=== PATIENT | female | born 1975 | race Caucasian/White ===

== ENCOUNTER 2023-02-02 22:57 | Inpatient (IN) | payer BC ==
[~2023-02-02] VITALS: Ht 152.4 cm; Wt 58.4 kg
[2023-02-03] MEDS ORDERED: NITROGLYCERIN 0.4 MG SL TABLETS BTL 25'S SL PRN (01:45)
[2023-02-03] MEDS ORDERED: ACETAMINOPHEN 500 MG TABLET PO PRN (01:45)
[2023-02-03] MEDS ORDERED: meTOprolol TARTRATE (IR) 50 MG TABLET PO SCH (02:00)
[2023-02-03] MEDS ORDERED: NS IV 1000 ML 1,000 ML IV SCH ×2 (03:00→05:00)
[2023-02-03] MEDS: LORazepam 1 MG TABLET PO PRN ×2 (05:09→21:47)
[2023-02-03 07:43] LABS: POTASSIUM 4.1 MMOL/L (3.6-5.0)
[2023-02-03 07:48] LABS: CREATININE SERUM 0.64 MG/DL (0.60-1.30)
--- NOTE | 2023-02-03 07:49 | History & Physical-Hospitalist ---
History of Present Illness HPI/Chief Complaint Patient is a 47-year-old female with a past medical history of alcohol abuse who presented to the outside emergency department due to chest pain. Her committed suicide yesterday and symptoms started shortly after this. Troponin was found ot be elevated at 2.9 there and she was transferred for cardiology evaluation. This morning she reports still having some chest tightness and pressure that radiates to her back. When asked about other symptoms such as shortness of breath or nausea she has somewhat nondescript given what she is going through. Repeat troponin is pending at this time but have spoken to eICU and cardiology regarding patient. Source: patient Date Seen 02/03/23 Time Seen by a Provider: 07:43 Attending Physician PCP Admitting Physician: Edgar Jimenes MD Attending Physician: Edgar Jimenes MD Referring Physician Date of Admission Feb 03, 2023 at 00:29 Home Medications & Allergies Home Medications Reviewed patient Home Medication Reconciliation performed by pharmacy medication reconciliations microbiology lab technician and/or nursing. Patients Allergies have been reviewed. Allergies Allergies Coded Allergies No Known Drug Allergies (Utfquhxlev99/4/23) Past Mlqrulf-Rzmshq-Tsrdfk Hx Patient Social History Tobacco Use?: Yes Tobacco type used: Cigarettes Smoking Status: Current Everyday Smoker Use of E-Cig and/or Vaping dev: Yes E-Cig or Vaping type used: Nicotine Use of E-Cig and/or Vaping Carter: Light User Substance use?: No Alcohol Use?: Yes Alcohol type: Beer Alcohol Frequency: Daily Additional Alcohol Comments: 2-4 BEERS PER NIGHT Pt feels they are or have been: No Current Status status: No status: No Advance Directives: No Communicates: Verbally Primary Language: Israeli Preferred Spoken Language: Israeli Is interpretation needed?: No Sensory deficits: Vision impairment Implanted or Applied Medical D: None Review of Systems Constitutional: see HPI Physical Exam Physical Exam Vital Signs Vital Signs - First Documented 02/03/23 02/03/23 00:30 07:39 Temp 36.3 O2 Flow Rate 2.00 Capillary Refill : Height, Weight, BMI Height: '" Weight: lbs. oz. kg; 25.40 BMI Method: General Appearance: No Apparent Distress, WD/WN Respiratory: Lungs Clear, No Respiratory Distress Cardiovascular: Regular Rate, Rhythm, No Murmur Gastrointestinal: Normal Bowel Sounds, Soft Neurologic/Psychiatric: Alert, Oriented x3, Depressed Affect Results Results/Procedures Labs Laboratory Tests 02/03/23 07:14 Patient resulted labs reviewed. Assessment/Plan Admission Diagnosis NSTEMI Admission Status: Inpatient Order (span 2 midnights) Reason for Inpatient Admission: see below Assessment and Plan NSTEMI Alcohol abuse Trop 2.9 at OSH Repeat pending here Cardiology consulted, appreciate recs Telemetry NPO Echo ordered Received Lovenox, ASA, Plavix at OSH Updated Dr Chambers of admission special services supervisor consulted due to recent suicide of Diagnosis/Problems Diagnosis/Problems (1) NSTEMI (non-ST elevated myocardial infarction) ROXY RAINES MD Feb 03, 2023 07:49
--- NOTE | 2023-02-03 08:38 | Consultation-Cardiology ---
HPI-Cardiology Cardiology Consultation: Date of Consultation 02/03/23 Time Seen by a Provider: 08:10 Date of Admission 02-03-23 Attending Physician Admitting Physician Admitting Physician: Edgar Jimenes MD Attending Physician: Edgar Jimenes MD Consulting Physician Ric Zhong MD HPI: Chief Complaint: NSTEMI Ms. Alejandro is a 47 yr old female admitted to ICU 9 from [facility] with NSTEMI. She has had increased stress d/t the recent suicide of her spouse (yesterday). She reports increasing chest pressure mid-chest radiating across her chest. She reports she had been nauseated most of the day yesterday. She does report diaphoresis yesterday. She had taken a Xanax belonging to a friend. This did not improve her chest discomfort. She reports she is still having some chest pressure, mid-sternal this morning, but reports it is better than yesterday. She does smoke cigs approx 1 PPD. No LE swelling. Review of Systems-Cardiology Review of Systems Constitutional: No chills, No fever; tiredness Eyes: No vision change Ears/Nose/Throat: No recent hearing loss Respiratory: As described under HPI Cardiovascular: As described under HPI Gastrointestinal: As described under HPI Genitourinary: No dysuria, No hematuria Musculoskeletal: no symptoms reported Skin: No rash on exposed areas, No ulcerations on exposed areas Psychiatric/Neurological: anxiety, depression; No seizure, No focal weakness, No syncope Hematologic: No bleeding abnormalities HSW-Guagqd-Lpebkq Hx Patient Social History Smoking Status: Current Everyday Smoker Alcohol Use?: Yes Pt feels they are or have been: No Tobacco type used: Cigarettes Past Medical History PMH As described under Assessment. Family Medical History Family Medical History: Reports father had h/o CAD. Allergies and Home Medications Allergies Coded Allergies: No Known Drug Allergies (Unverified , 02/03/23) Patient Home Medication List Famotidine (Acid Narcotics Detective (FAMOTIDINE)) 20 Mg Tablet, 20 MG PO BID PRN for HEARTBURN, (Reported) Entered as Reported by: PREET CURTIS on 02/03/23 1056 Last Action: Reviewed Ibuprofen (Ibuprofen) 200 Mg Tablet, 400-600 MG PO Q8H PRN for PAIN-MILD (1-4), (Reported) Entered as Reported by: PREET CURTIS on 02/03/23 1056 Last Action: Reviewed Physical Exam-Cardiology Physical Exam Vital Signs/I&O 02/04/23 02/04/23 02/04/23 02/04/23 00:00 01:00 01:30 01:45 Temp 36.4 Pulse 75 100 68 62 Resp 20 18 18 B/P (MAP) 86/67 (73) 81/59 (66) 82/54 (63) Pulse Ox 96 94 94 O2 Delivery Room Air Room Air Room Air 02/04/23 02/04/23 02/04/23 04:00 07:00 07:54 Temp 37.0 Pulse 97 108 94 Resp 15 13 B/P (MAP) 98/75 (83) 117/80 (92) Pulse Ox 96 97 O2 Delivery Room Air Nasal Cannula 02/04/23 00:00 Intake Total 1190 ml Balance 1190 ml Capillary Refill : Constitutional: AAO x 3, well-developed, well-nourished HEENT: PERRL, hearing is well preserved, oral hygience is good Neck: No carotid bruit; carotid pulses are 2 + bilaterally Respiratory: No accessory muscle use, No respiratory distress; chest expansion is symmetric, chest is bilaterally symmetric, lungs clear to auscultation Cardiovascular: regular rate-rhythm; No JVD; S1 and S2 Gastrointestinal: No tender; soft; No guarding; audible bowel sounds Extremities: no lower extremity edema bilateral Neurologic/Psychiatric: oriented x 3, other (moves all extremities) Skin: No rash on exposed areas, No ulcerations on exposed areas Data Review Labs Laboratory Tests 02/04/23 05:27: White Blood Count 11.0, Red Blood Count 3.49L, Hemoglobin 11.5, Hematocrit 32L, Mean Corpuscular Volume 92, Mean Corpuscular Hemoglobin 33, Mean Corpuscular Hemoglobin Concent 36, Red Cell Distribution Width 12.7, Platelet Count 229, Mean Platelet Volume 9.4, Immature Granulocyte % (Auto) 0, Neutrophils (%) (Auto) 79H, Lymphocytes (%) (Auto) 13, Monocytes (%) (Auto) 6, Eosinophils (%) (Auto) 1, Basophils (%) (Auto) 1, Neutrophils # (Auto) 8.7H, Lymphocytes # (Auto) 1.4, Monocytes # (Auto) 0.7, Eosinophils # (Auto) 0.1, Basophils # (Auto) 0.1, Immature Granulocyte # (Auto) 0.0, Sodium Level 134L, Potassium Level 3.3L, Chloride Level 104, Carbon Dioxide Level 20L, Anion Gap 10, Blood Urea Nitrogen 5L, Creatinine 0.67, Estimat Glomerular Filtration Rate 107, BUN/Creatinine Ra vaibhav 7, Glucose Level 106H, Calcium Level 8.1L, Corrected Calcium 8.7, Phosphorus Level 2.4, Magnesium Level 1.8, Total Bilirubin 0.7, Aspartate Amino Transf (AST/SGOT) 26, Alanine Aminotransferase (ALT/SGPT) 18, Alkaline Phosphatase 62, Total Protein 5.7L, Albumin 3.2 Microbiology 02/03/23 MRSA Screen - Final, Complete MRSA not isolated A/P-Cardiology Assessment/Admission Diagnosis NSTEMI Tobacco use ETOH usage H/O cholecystectomy Recent loss of spouse d/t suicide (02-02-23) Discussion and Recomendations NSTEMI with ongoing chest discomfort - advise cardiac cath. Discussed procedure, risks, benefits and potential complications of cardiac cath with possible PTCA. She provides informed consent Echocardiogram today Continue DAPT and BB Further recs will be based on her hospital course We would like to thank medical services for this consult I have discussed plan of care with Dr. Hayward and Dr. Trevin ALEMAN,[facility] Feb 03, 2023 08:38
[2023-02-03] MEDS ORDERED: CLOPIDOGREL 75 MG TABLET PO SCH (09:00)
[2023-02-03] MEDS ORDERED: meTOprolol TARTRATE (IR) 25 MG TABLET PO SCH (09:00)
[2023-02-03 09:11] LABS: INR 1.1 (0.8-1.4); PROTHROMBIN TIME PATIENT 13.9 SEC (12.2-14.7)
[2023-02-03] MEDS ORDERED: HEParin (CATH LAB) 2,000 ML IV ONE (09:18)
[2023-02-03] MEDS ORDERED: LIDOCAINE 1% INJ 20 ML VIAL ONE (09:18)
[2023-02-03] MEDS: ASPIRIN enteric coated 81MG TABLET PO SCH (09:26)
[2023-02-03 09:41] LABS: HEMATOCRIT 35 % (35-52); HEMOGLOBIN 12.4 g/dL (11.5-16.0); MEAN CORPUSCULAR HEMOGLOBIN 33 pg (25-34); MEAN CORPUSCULAR HGB CONC 35 g/dL (32-36); MEAN CORPUSCULAR VOLUME 92 fL (80-99); MEAN PLATELET VOLUME 9.5 fL (9.0-12.2); PLATELET COUNT 257 10^3/uL (130-400); WHITE BLOOD COUNT 7.1 10^3/uL (4.3-11.0)
[2023-02-03] MEDS ORDERED: IBUP-2473 PO (10:56)
[2023-02-03] MEDS ORDERED: FAMO-356 PO (10:56)
--- NOTE | 2023-02-03 11:48 | Tele-ICU Progress Note ---
Subjective Date Seen by a Provider: Feb 03, 2023 Time Seen by a Provider: 11:47 Subjective/Events-last exam (Tele-ICU Physician , Progress Note ) Service provided via interactive audio and video telecommunications E-CARE s te to a patient admitted to ICU bed in [facility]. Patient is seen today due to persistent need of ICU care Available chart/ vitals / labs / Images reviewed Video assessment done using teleICU camera, rest of exam as per RN She is a 47-year-old female with no known past medical history presenting today to go the ICU from [facility] with a complaint of chest pressure and nausea since yesterday. The chest pressure is almost constant. She has a history of smoking 1 pack/day. She is given aspirin, Plavix and Lovenox at the [facility] and admitted here for cardiology follow-up. She is scheduled for a cardiac catheterization. Impression 1. Non-STEMI secondary to stress and smoking. 2. Tobacco abuse disorder Plan of treatment. 1. Cardiac catheterization and intervention per cardiology 2. Smoking cessation advised 3. LDL goal less than 70. Coordination of care with primary care physician and bedside consultants. I am remotely monitoring this patient from Tele icu station in [place]. I am unable to do the bedside exam, and history/physical and pertinent information is taken from other notes in the computer and bedside staff. Certain portions of this document may have been dictated utilizing voice recognition technology such as [employer]. Inherent to this technology, typographical and grammatical errors may exist. As much as I am diligent to id entify and correct to these mistakes, some errors may remain in the document. Critical care time devoted to this patient today is approximately is-15 minutes- Sepsis Event Evaluation Height, Weight, BMI Height: '" Weight: lbs. oz. kg; 25.40 BMI Method: Exam Exam Patient acknowledged, consented, and participated in this virtual visit which was conducted using real time audio/video Vital Signs Date Time Temp Pulse Resp B/P (MAP) Pulse Ox O2 Delivery O2 Flow Rate FiO2 02/03/23 08:00 98 Room Air 02/03/23 07:39 36.8 Nasal Cannula 2.00 02/03/23 07:00 113 02/03/23 06:00 104 22 94/73 (77) 89 Room Air 02/03/23 05:30 112 19 101/74 (83) 89 Room Air 02/03/23 05:00 112 20 102/71 (81) 89 Room Air 02/03/23 04:30 98 18 93/68 (76) 93 Room Air 02/03/23 04:00 36.4 02/03/23 04:00 110 19 93/71 (77) 93 Room Air 02/03/23 03:49 97 Room Air 02/03/23 03:30 96 18 81/58 (67) 91 Room Air 02/03/23 03:00 97 17 85/59 (67) 93 Room Air 02/03/23 02:30 115 16 87/62 (71) 94 Room Air 02/03/23 02:09 100 18 91/63 (73) 92 Room Air 02/03/23 02:00 99 19 78/55 (67) 93 Room Air 02/03/23 01:49 103 20 87/58 (65) 93 Room Air 02/03/23 01:45 103 21 86/59 (71) 92 Room Air 02/03/23 01:30 101 12 94/63 (79) 93 Room Air 02/03/23 01:15 106 18 94/67 (77) 95 Room Air 02/03/23 01:00 97 Room Air 02/03/23 01:00 100 16 91/66 (77) 94 Room Air 02/03/23 00:45 98 17 93/66 (75) 93 Room Air 02/03/23 00:33 101 02/03/23 00:33 99 22 103/71 (81) 94 Room Air 02/03/23 00:30 36.3 I & O 02/03/23 07:00 Intake Total 1150 ml Output Total 800 ml Balance 350 ml Height & Weight Height: '" Weight: lbs. oz. kg; 25.40 BMI Method: General Appearance: Anxious, Mild Distress Results Lab Laboratory Tests 02/03/23 07:14 Assessment/Plan Assessment/Plan as above Critical Care: Critically Ill Patient Time spent with patient (mins): 15 RICKY SHEPARD MD Feb 03, 2023 11:48
[2023-02-03] MEDS ORDERED: RT-Ipratropium/Albuterol NEB 3 ML VIAL INH PRN (12:45)
[2023-02-03] MEDS ORDERED: RT-Ipratropium/Albuterol NEB 3 ML VIAL INH NR (12:45)
--- NOTE | 2023-02-03 12:56 | Diagnostic Imaging Report ---
EXAMINATION: Chest 1 view HISTORY: Short of breath COMPARISON: None available. FINDINGS: There is severe edema. No pleural effusion or pneumothorax. Heart size is normal. IMPRESSION: 1. Severe edema. Dictated by: Dictated on workstation # [id number]
[2023-02-03] MEDS ORDERED: FUROSEMIDE INJECTION 40 MG/4 ML VIAL IVP NR (13:15)
--- NOTE | 2023-02-03 15:06 | Consultation-Cardiology ---
HPI-Cardiology Cardiology Consultation: Date of Consultation 02/03/23 Time Seen by a Provider: 12:15 Date of Admission Attending Physician Admitting Physician Admitting Physician: Edgar Jimenes MD Attending Physician: Edgar Jimenes MD Consulting Physician ANGELA ESCALANTE MD, MA, FACP, FACC, [facility], CCDS Physician requesting consult: Hospitalist Tash HPI: Chief Complaint: Reason for Card consult: NSTEMI Ms. Alejandro is a 47 yr old female admitted to ICU 9 from [facility] with NSTEMI. She has had increased stress d/t the recent suicide of her spouse (yesterday). She reports increasing chest pressure mid-chest radiating across her chest. She reports she had been nauseated most of the day yesterday. She does report diaphoresis yesterday. She had taken a Xanax belonging to a friend. This did not improve her chest discomfort. She reports she is still having some chest pressure, mid-sternal this morning, but reports it is better than yesterday. She does smoke cigs approx 1 PPD. No LE swelling. Review of Systems-Cardiology Review of Systems Constitutional: No chills, No fever; tiredness Eyes: No vision change Ears/Nose/Throat: No recent hearing loss Respiratory: As described under HPI Cardiovascular: As described under HPI Gastrointestinal: As described under HPI Genitourinary: No dysuria, No hematuria Musculoskeletal: no symptoms reported Skin: No rash on exposed areas, No ulcerations on exposed areas Psychiatric/Neurological: anxiety, depression; No seizure, No focal weakness, No syncope Hematologic: No bleeding abnormalities ADQ-Slmofn-Bpwkys Hx Patient Social History Smoking Status: Current Everyday Smoker Alcohol Use?: Yes Pt feels they are or have been: No Tobacco type used: Cigarettes Past Medical History PMH As described under Assessment. Family Medical History Family Medical History: Reports father had h/o CAD. Allergies and Home Medications Allergies Coded Allergies: No Known Drug Allergies (Unverified , 02/03/23) Patient Home Medication List Home Medication List Reviewed: Yes Famotidine (Acid Glove Sewer (FAMOTIDINE)) 20 Mg Tablet, 20 MG PO BID PRN for HEARTBURN, (Reported) Entered as Reported by: PREET CURTIS on 02/03/23 1056 Last Action: Reviewed Ibuprofen (Ibuprofen) 200 Mg Tablet, 400-600 MG PO Q8H PRN for PAIN-MILD (1-4), (Reported) Entered as Reported by: PREET CURTIS on 02/03/23 1056 Last Action: Reviewed Physical Exam-Cardiology Physical Exam Vital Signs/I&O 02/03/23 02/03/23 02/03/23 02/03/23 03:30 03:49 04:00 04:00 Temp 36.4 Pulse 96 110 Resp 18 19 B/P (MAP) 81/58 (67) 93/71 (77) Pulse Ox 91 97 93 O2 Delivery Room Air Room Air Room Air 02/03/23 02/03/23 02/03/23 02/03/23 04:30 05:00 05:30 06:00 Pulse 98 112 112 104 Resp 18 22 B/P (MAP) 93/68 (76) 102/71 (81) 101/74 (83) 94/73 (77) Pulse Ox 93 89 89 89 O2 Delivery Room Air Room Air Room Air Room Air 02/03/23 02/03/23 02/03/23 02/03/23 07:00 07:00 07:39 08:00 Temp 36.8 Pulse 113 112 Resp 23 B/P (MAP) 108/79 (89) Pulse Ox 95 98 O2 Delivery Room Air Nasal Cannula Room Air O2 Flow Rate 2.00 02/03/23 02/03/23 02/03/23 02/03/23 08:00 09:00 10:00 11:00 Pulse 113 112 104 105 Resp 22 30 B/P (MAP) 110/85 (93) 115/87 (96) 103/80 (88) 115/91 (99) Pulse Ox 95 95 96 95 O2 Delivery Room Air Room Air Room Air Room Air 02/03/23 02/03/23 02/03/23 02/03/23 12:00 12:25 13:00 14:03 Pulse 105 112 Resp 25 19 B/P (MAP) 105/78 (87) 115/87 (96) Pulse Ox 93 92 93 94 O2 Delivery Room Air Nasal Cannula Room Air Nasal Cannula O2 Flow Rate 3.00 2.00 Capillary Refill : Constitutional: AAO x 3, well-developed, well-nourished HEENT: PERRL, hearing is well preserved, oral hygience is good Neck: No carotid bruit; carotid pulses are 2 + bilaterally Respiratory: No accessory muscle use, No respiratory distress; chest expansion is symmetric, chest is bilaterally symmetric, lungs clear to auscultation Cardiovascular: regular rate-rhythm; No JVD; S1 and S2 Gastrointestinal: No tender; soft; No guarding; audible bowel sounds Extremities: no lower extremity edema bilateral Neurologic/Psychiatric: oriented x 3, other (moves all extremities) Skin: No rash on exposed areas, No ulcerations on exposed areas Data Review Labs Laboratory Tests 02/03/23 07:14: White Blood Count 7.1, Red Blood Count 3.82, Hemoglobin 12.4, Hematocrit 35, Mean Corpuscular Volume 92, Mean Corpuscular Hemoglobin 33, Mean Corpuscular Hemoglobin Concent 35, Red Cell Distribution Width 12.5, Platelet Count 257, Mean Platelet Volume 9.5, Sodium Level 135, Potassium Level 4.1, Chloride Level 107, Carbon Dioxide Level 19L, Anion Gap 9, Blood Urea Nitrogen 5L, Creatinine 0.64, Estimat Glomerular Filtration Rate 108, BUN/Creatinine Ratio 8, Glucose Level 95, Calcium Level 8.0L, Troponin I 2.119*H 02/03/23 07:15: Prothrombin Time 13.9, INR Comment 1.1, Activated Partial Thromboplast Time 40H A/P-Cardiology Assessment/Admission Diagnosis NSTEMI Tobacco use ETOH usage H/O cholecystectomy Recent loss of spouse d/t suicide (02-02-23) Discussion and Recomendations NSTEMI with ongoing chest discomfort - advise cardiac cath. Discussed procedure, risks, benefits and potential complications of cardiac cath with possible PTCA. She provides informed consent Echocardiogram today Continue DAPT and BB Further recs will be based on her hospital course ANGELA ESCALANTE MD FACP [facility] Feb 03, 2023 15:06
[2023-02-03] MEDS ORDERED: fentaNYL INJECTION 100 MCG/2 ML VIAL ONE (16:15)
[2023-02-03] MEDS ORDERED: MIDAZOLAM INJ 5 MG/5 ML VIAL ONE (16:15)
[2023-02-03] MEDS ORDERED: HEParin 1000 UNIT/ML (10ML VIAL) FOR BOLUS ONE (16:59)
[2023-02-03] MEDS ORDERED: ADENOSINE 90 MG/30 ML IV ONE (16:59)
--- NOTE | 2023-02-03 17:27 | Cardiac Procedure Note-CS/ASA ---
Pre-Procedure Note Pre-Op Procedure Note Date of Available H&P: Feb 03, 2023 Date H&P Reviewed: Feb 03, 2023 Time H&P Reviewed: 16:40 History & Physical: H&P Reviewed, No changes noted Moderate Sedation PreProcedure ASA Score 3 Airway Lungs Heart ASA score ASA 1: a normal healthy patient ASA 2: a patient with a mild systemic disease (mid diabetes, controlled hypertension, obesity ASA 3: a patient with a severe systemic disease that limits activity (angina, COPD, prior Myocardial infarction) ASA 4: a patient with an incapacitating disease that is a constant threat to life (CHF, renal failure) ASA 5: a moribund patient not expected to survive 24 hrs. (ruptured aneurysm) ASA 6: a declared brain- patient whose organs are being harvested. For emergent operations, add the letter E after the classification Mallampati Classification Grade 2 Sedation Plan Analgesia, Amnesia, Plan communicated to team members The patient is an appropriate candidate to undergo the planned procedure, sedation, and anesthesia. The patient immediately re-assessed prior to indication. ANGELA ESCALANTE MD FACP FAC CCDS Feb 03, 2023 17:27
--- NOTE | 2023-02-03 17:36 | Cardiac Cath Report ---
CARDIAC CATHETERIZATION DATE OF PROCEDURE: 02-03-23 INDICATION: Elevated troponin HISTORY: The patient is a 47 year old female with chest discomfort after committed suicide earlier that day. Troponin elevated PROCEDURES PERFORMED: 1. Cor angio; 2. LHC; 3. LV Angio PROCEDURE DESCRIPTION: After informed consent and in the fasting state, left heart catheterization was performed through the R femoral artery utilizing a 5 Lao system by percutaneous approach. JL4 for LCA; JR4 for RCA; pigtail for LHC and LV angio. HEMODYNAMICS: LVEDP 23 mmHg; no significant pressure gradient on pullback across the aortic valve CORONARY ANGIOGRAPHY: Left main coronary artery: Ok Left anterior descending coronary artery: 30-40% proximal LAD Left circumflex coronary artery: mild plaques Right coronary artery: Dominant. 30-40% mid vessel stenosis LV Angio Both RAMOS and SLOVAK projections obtained: kane-apical and inf wall hypokinesis FFR measurement Guide 6F JL4 Wire: Pressure X wire FFR Prox LAD: 0.95 IMPRESSION: 1. Mild CAD 2. Kane-apical and inf wall hypokinesis consistent with takotsubo. LVEF approx 45% 3. LVEDP 23 mmHg ANGELA ESCALANTE MD FACP [facility] Feb 03, 2023 17:36
[2023-02-03] MEDS ORDERED: ACETAMINOPHEN 325 MG TABLET PO PRN (17:45)
[2023-02-03] MEDS ORDERED: TEMAZEPAM 7.5 MG CAP (RESTORIL) PO PRN (17:45)
[2023-02-03] MEDS ORDERED: PATIENT MAY USE OWN MEDS, ALL PO SCH (17:45)
[2023-02-03] MEDS: NS IV 1000 ML 1,000 ML IV SCH ×2 (17:54→23:21)
[2023-02-04] MEDS: NS IV 1000 ML 1,000 ML IV SCH (05:15)
[2023-02-04 06:03] LABS: BASOPHILS # (AUTO) 0.1 10^3/uL (0.0-0.1); BASOPHILS % (AUTO) 1 % (0-10); EOSINOPHILS # (AUTO) 0.1 10^3/uL (0.0-0.3); EOSINOPHILS % (AUTO) 1 % (0-10); HEMATOCRIT 32 % (35-52); HEMOGLOBIN 11.5 g/dL (11.5-16.0); LYMPHOCYTES # (AUTO) 1.4 10^3/uL (1.0-4.0); LYMPHOCYTES % (AUTO) 13 % (12-44); MEAN CORPUSCULAR HEMOGLOBIN 33 pg (25-34); MEAN CORPUSCULAR HGB CONC 36 g/dL (32-36); MEAN CORPUSCULAR VOLUME 92 fL (80-99); MEAN PLATELET VOLUME 9.4 fL (9.0-12.2); MONOCYTES # (AUTO) 0.7 10^3/uL (0.0-1.0); MONOCYTES % (AUTO) 6 % (0-12); NEUTROPHILS # (AUTO) 8.7 10^3/uL (1.8-7.8); NEUTROPHILS % (AUTO) 79 % (42-75); PLATELET COUNT 229 10^3/uL (130-400)
[2023-02-04 06:13] LABS: ALBUMIN 3.2 GM/DL (3.2-4.5); POTASSIUM 3.3 MMOL/L (3.6-5.0)
[2023-02-04 06:14] LABS: CALCIUM 8.1 MG/DL (8.5-10.1)
[2023-02-04 06:16] LABS: TOTAL PROTEIN 5.7 GM/DL (6.4-8.2)
[2023-02-04 06:17] LABS: BILIRUBIN,TOTAL 0.7 MG/DL (0.1-1.0)
[2023-02-04 06:19] LABS: CREATININE SERUM 0.67 MG/DL (0.60-1.30); PHOSPHORUS 2.4 MG/DL (2.3-4.7)
[2023-02-04 06:22] LABS: MAGNESIUM 1.8 MG/DL (1.6-2.4)
--- NOTE | 2023-02-04 08:06 | Diagnostic Imaging Report ---
EXAMINATION: Chest 1 view HISTORY: Heart failure COMPARISON: 02/03/2023 FINDINGS: There is mild edema, improved from prior exam. No pneumothorax. No pleural effusion. Heart size is normal. IMPRESSION: 1. Improving mild edema. Dictated by: Dictated on workstation # [id number]
--- NOTE | 2023-02-04 08:49 | Progress Note - Cardiology ---
Cardiology SOAP Progress Note Subjective: Sitting up in bed No c/o CP, palpitations No c/o groin discomfort Objective: I&O/Vital Signs 02/04/23 02/04/23 02/04/23 02/04/23 00:00 01:00 01:30 01:45 Temp 36.4 Pulse 75 100 68 62 Resp 20 18 18 B/P (MAP) 86/67 (73) 81/59 (66) 82/54 (63) Pulse Ox 96 94 94 O2 Delivery Room Air Room Air Room Air 02/04/23 02/04/23 02/04/23 04:00 07:00 07:54 Temp 37.0 Pulse 97 108 94 Resp 15 13 B/P (MAP) 98/75 (83) 117/80 (92) Pulse Ox 96 97 O2 Delivery Room Air Nasal Cannula 02/04/23 00:00 Intake Total 1190 ml Balance 1190 ml Side: right Groin site without hematoma: Yes Condition: DP/PT pulses palpable, extremity w/d/p Bruising: mild bruising Constitutional: AAO x 3, well-developed, well-nourished Respiratory: No accessory muscle use, No respiratory distress; chest expansion is symmetric, chest is bilaterally symmetric, lungs clear to auscultation Cardiovascular: regular rate-rhythm; No JVD; S1 and S2 Gastrointestional: No tender; soft; No guarding; audible bowel sounds Extremities: no lower extremity edema bilateral Neurologic/Psychiatric: oriented x 3, other (moves all extremities) Skin: No rash on exposed areas, No ulcerations on exposed areas Results/Procedures: Labs Laboratory Tests 02/04/23 05:27: White Blood Count 11.0, Red Blood Count 3.49L, Hemoglobin 11.5, Hematocrit 32L, Mean Corpuscular Volume 92, Mean Corpuscular Hemoglobin 33, Mean Corpuscular Hemoglobin Concent 36, Red Cell Distribution Width 12.7, Platelet Count 229, Mean Platelet Volume 9.4, Immature Granulocyte % (Auto) 0, Neutrophils (%) (Auto) 79H, Lymphocytes (%) (Auto) 13, Monocytes (%) (Auto) 6, Eosinophils (%) (Auto) 1, Basophils (%) (Auto) 1, Neutrophils # (Auto) 8.7H, Lymphocytes # (Auto) 1.4, Monocytes # (Auto) 0.7, Eosinophils # (Auto) 0.1, Basophils # (Auto) 0.1, Immature Granulocyte # (Auto) 0.0, Sodium Level 134L, Potassium Level 3.3L, Chloride Level 104, Carbon Dioxide Level 20L, Anion Gap 10, Blood Urea Nitrogen 5L, Creatinine 0.67, Estimat Glomerular Filtration Rate 107, BUN/Creatinine Ratio 7, Glucose Level 106H, Calcium Level 8.1L, Corrected Calcium 8.7, Phosphorus Level 2.4, Magnesium Level 1.8, Total Bilirubin 0.7, Aspartate Amino Transf (AST/SGOT) 26, Alanine Aminotransferase (ALT/SGPT) 18, Alkaline Phosphatase 62, Total Protein 5.7L, Albumin 3.2 Microbiology 02/03/23 MRSA Screen - Final, Complete MRSA not isolated A/P: Assessment: NSTEMI - Cardiac cath of 02-03-23: Mild CAD. Kane-apical and inf wall hypokinesis consistent with takotsubo. LVEF approx 45%. LVEDP 23 mmHg Takotsubo cardiomyopathy - Echocardiogram of 02-03-23 showed LVEF 40-45%. Mild hypokinesis of the apical anterior, apical lateral, apical myocardium - Cardiac cath of 02-03-23 (see above) Tobacco use ETOH usage H/O cholecystectomy Recent loss of spouse d/t suicide (02-02-23) Plan: Takotsubo cardiomyopathy - treat with PREM, BB and Aldactone Continue ASA and Plavix Hypokalemia - replace Likely discharge home today Out patient f/u in 1 week SANDRINE ALEMAN Feb 04, 2023 08:49
[2023-02-04] MEDS ORDERED: MTP25TSR PO (08:55)
[2023-02-04] MEDS ORDERED: LISI5TAB20 PO (08:55)
[2023-02-04] MEDS ORDERED: ASPI-1238 PO (08:55)
[2023-02-04] MEDS ORDERED: SPIR25TA5 PO (08:55)
--- NOTE | 2023-02-04 08:59 | Discharge Inst-Simple/Standard ---
Discharge Inst-Standard Discharge Medications New, Converted or Re-Newed RX: Transmitted to Pharmacy Patient Instructions/Follow Up Plan of Care/Instructions/FU: Please continue to take your medications as written. Please follow up with your primary care doctor to follow up this hospital stay. Activity as Tolerated: Yes Discharge Diet: Low Sodium Diet Return to The Hospital For: Chest pain, shortness of breath, fever, weakness, if you feel you are getting worse. ROXY RAINES MD Feb 04, 2023 08:59
[2023-02-04] MEDS ORDERED: POTASSIUM CHLORIDE 20 MEQ TABLET PO NR (09:00)
[2023-02-04] MEDS ORDERED: SPIRONOLACTONE 25 MG TABLET PO SCH (09:00)
--- NOTE | 2023-02-04 09:01 | Discharge Summary ---
Diagnosis/Chief Complaint Date of Admission Feb 03, 2023 at 00:29 Date of Discharge Discharge Date: Feb 04, 2023 Admission Diagnosis NSTEMI Primary Care Discharge Diagnosis (1) NSTEMI (non-ST elevated myocardial infarction) Discharge Summary Discharge Physical Exam Allergies: Coded Allergies: No Known Drug Allergies (Unverified , 02/03/23) Vitals & I&Os Vital Signs Date Time Temp Pulse Resp B/P (MAP) Pulse Ox O2 Delivery O2 Flow Rate FiO2 02/04/23 07:54 37.0 94 13 117/80 (92) 97 Nasal Cannula 02/03/23 14:03 2.00 General Appearance: No Apparent Distress, WD/WN Cardiovascular: No Murmur, Tachycardia Neurologic/Psychiatric: Alert, Oriented x3 Hospital Course Patient was admitted to the hospital secondary to NSTEMI following the suicide of her . Cardiology was consulted and she had a cardiac cath which revealed mild coronary artery disease. Echo revealed an EF of 40%. She was started on appropriate heart failure medications as blood pressure will tolerate. She was discharged home to follow-up with Dr. Suresh and with her primary care physician Dr. MALDONADO. Labs (last 24 hrs) Laboratory Tests 02/04/23 05:27: White Blood Count 11.0, Red Blood Count 3.49L, Hemoglobin 11.5, Hematocrit 32L, Mean Corpuscular Volume 92, Mean Corpuscular Hemoglobin 33, Mean Corpuscular Hemoglobin Concent 36, Red Cell Distribution Width 12.7, Platelet Count 229, Mean Platelet Volume 9.4, Immature Granulocyte % (Auto) 0, Neutrophils (%) (Auto) 79H, Lymphocytes (%) (Auto) 13, Monocytes (%) (Auto) 6, Eosinophils (%) (Auto) 1, Basophils (%) (Auto) 1, Neutrophils # (Auto) 8.7H, Lymphocytes # (Aut o) 1.4, Monocytes # (Auto) 0.7, Eosinophils # (Auto) 0.1, Basophils # (Auto) 0.1, Immature Granulocyte # (Auto) 0.0, Sodium Level 134L, Potassium Level 3.3L, Chloride Level 104, Carbon Dioxide Level 20L, Anion Gap 10, Blood Urea Nitrogen 5L, Creatinine 0.67, Estimat Glomerular Filtration Rate 107, BUN/Creatinine Ratio 7, Glucose Level 106H, Calcium Level 8.1L, Corrected Calcium 8.7, Phosphorus Level 2.4, Magnesium Level 1.8, Total Bilirubin 0.7, Aspartate Amino Transf (AST/SGOT) 26, Alanine Aminotransferase (ALT/SGPT) 18, Alkaline Phosphatase 62, Total Protein 5.7L, Albumin 3.2 Microbiology 02/03/23 MRSA Screen - Final, Complete MRSA not isolated Patient resulted labs reviewed. Pending Labs Laboratory Tests 02/04/23 05:27: White Blood Count 11.0, Red Blood Count 3.49, Hemoglobin 11.5, Hematocrit 32, Mean Corpuscular Volume 92, Mean Corpuscular Hemoglobin 33, Mean Corpuscular Hemoglobin Concent 36, Red Cell Distribution Width 12.7, Platelet Count 229, Mean Platelet Volume 9.4, Immature Granulocyte % (Auto) 0, Neutrophils (%) (Auto) 79, Lymphocytes (%) (Auto) 13, Monocytes (%) (Auto) 6, Eosinophils (%) (Auto) 1, Basophils (%) (Auto) 1, Neutrophils # (Auto) 8.7, Lymphocytes # (Auto) 1.4, Monocytes # (Auto) 0.7, Eosinophils # (Auto) 0.1, Basophils # (Auto) 0.1, Immature Granulocyte # (Auto) 0.0, Sodium Level 134, Potassium Level 3.3, Chloride Level 104, Carbon Dioxide Level 20, Anion Gap 10, Blood Urea Nitrogen 5 , Creatinine 0.67, Estimat Glomerular Filtration Rate 107, BUN/Creatinine Ratio 7, Glucose Level 106, Calcium Level 8.1, Corrected Calcium 8.7, Phosphorus Level 2.4, Magnesium Level 1.8, Total Bilirubin 0.7, Aspartate Amino Transf (AST/SGOT) 26, Alanine Aminotransferase (ALT/SGPT) 18, Alkaline Phosphatase 62, Total Protein 5.7, Albumin 3.2 Discussion & Recommendations Discharge Planning: >30 minutes discharge planning Discharge Home Medications: Active Scripts Active Aspirin EC (Aspirin) 81 Mg Tablet.dr 81 Mg PO DAILY Spironolactone 25 Mg Tablet 25 Mg PO DAILY Lisinopril 5 Mg Tablet 5 Mg PO DAILY Metoprolol Succinate 25 Mg Tab.er.24h 25 Mg PO DAILY Reported Acid Machine Programmer (FAMOTIDINE) (Famotidine) 20 Mg Tablet 20 Mg PO BID PRN Ibuprofen 200 Mg Tablet 400-600 Mg PO Q8H PRN Instructions to patient/family Please see electronic discharge instructions given to patient. ROXY RAINES MD Feb 04, 2023 09:01
[2023-02-04] MEDS: ASPIRIN enteric coated 81MG TABLET PO SCH (09:20)
[2023-02-04] MEDS: LORazepam 1 MG TABLET PO PRN (09:22)
[2023-02-04] MEDS ORDERED: CLOP-31 PO (09:43)
--- NOTE | 2023-02-04 17:53 | Progress Note - Cardiology ---
Cardiology SOAP Progress Note Subjective: No cp or palp or syncope No n/v/d No shortness of breath No groin or leg discomfort Insists on going home Objective: I&O/Vital Signs 02/04/23 02/04/23 02/04/23 07:00 07:54 08:00 Temp 37.0 Pulse 108 94 Resp 13 B/P (MAP) 117/80 (92) Pulse Ox 97 97 O2 Delivery Nasal Cannula Room Air 02/04/23 00:00 Intake Total 1190 ml Balance 1190 ml Side: right Groin site without hematoma: Yes Condition: DP/PT pulses palpable, extremity w/d/p Bruising: mild bruising Constitutional: AAO x 3, well-developed, well-nourished Respiratory: No accessory muscle use, No respiratory distress; chest expansion is symmetric, chest is bilaterally symmetric, lungs clear to auscultation Cardiovascular: regular rate-rhythm; No JVD; S1 and S2 Gastrointestional: No tender; soft; No guarding; audible bowel sounds Extremities: no lower extremity edema bilateral Neurologic/Psychiatric: oriented x 3, other (moves all extremities) Skin: No rash on exposed areas, No ulcerations on exposed areas Results/Procedures: Labs Laboratory Tests 02/04/23 05:27: White Blood Count 11.0, Red Blood Count 3.49L, Hemoglobin 11.5, Hematocrit 32L, Mean Corpuscular Volume 92, Mean Corpuscular Hemoglobin 33, Mean Corpuscular Hemoglobin Concent 36, Red Cell Distribution Width 12.7, Platelet Count 229, Mean Platelet Volume 9.4, Immature Granulocyte % (Auto) 0, Neutrophils (%) (Auto) 79H, Lymphocytes (%) (Auto) 13, Monocytes (%) (Auto) 6, Eosinophils (%) (Auto) 1, Basophils (%) (Auto) 1, Neutrophils # (Auto) 8.7H, Lymphocytes # (Auto) 1.4, Monocytes # (Auto) 0.7, Eosinophils # (Auto) 0.1, Basophils # (Auto) 0.1, Immature Granulocyte # (Auto) 0.0, Sodium Level 134L, Potassium Level 3.3L, Chloride Level 104, Carbon Dioxide Level 20L, Anion Gap 10, Blood Urea Nitrogen 5L, Creatinine 0.67, Estimat Glomerular Filtration Rate 107, BUN/Creatinine Ratio 7, Glucose Level 106H, Calcium Level 8.1L, Corrected Calcium 8.7, Phosphorus Level 2.4, Magnesium Level 1.8, Total Bilirubin 0.7, Aspartate Amino Transf (AST/SGOT) 26, Alanine Aminotransferase (ALT/SGPT) 18, Alkaline Phosphatase 62, Total Protein 5.7L, Albumin 3.2 Microbiology 02/03/23 MRSA Screen - Final, Complete MRSA not isolated Laboratory Tests 02/03/23 07:14 02/04/23 05:27 A/P: Assessment: NSTEMI - Cardiac cath of 02-03-23: Mild CAD. [place]-apical and inf wall hypokinesis consistent with takotsubo. LVEF approx 45%. LVEDP 23 mmHg Takotsubo cardiomyopathy - Echocardiogram of 02-03-23 showed LVEF 40-45%. Mild hypokinesis of the apical anterior, apical lateral, apical myocardium - Cardiac cath of 02-03-23 (see above) Tobacco use ETOH usage H/O cholecystectomy Recent loss of spouse d/t suicide (02-02-23) Plan: Takotsubo cardiomyopathy - treat with PREM, BB and Aldactone Continue ASA and Plavix Hypokalemia - replace We advised 24 more hours at the hosp to observe for any arrhythmia (no significant arrhythmia seen so far). Discussed. She refuses. Has tolerated current regimen. Will continue Out patient f/u in 1 week ANGELA ESCALANTE MD FACP [facility] Feb 04, 2023 17:53
== END 2023-02-04 11:02 | disposition home or self-care (01) | DRG 281 ==
LOC: ICU 02-03 00:29 → UNDOADMIN 02-03 00:32 → ICU 02-03 00:32 → CSD 02-03 15:47
PROVIDERS: ADMIT Internal Medicine; ATTEND Internal Medicine
PROC: 4A023N7 Measurement of Cardiac Sampling and Pressure, Left Heart, Percutaneous Approach (ICD-10-PCS; principal; 2023-02-03)
PROC: B2111ZZ Fluoroscopy of Multiple Coronary Arteries using Low Osmolar Contrast (ICD-10-PCS; 2023-02-03)
PROC: B2151ZZ Fluoroscopy of Left Heart using Low Osmolar Contrast (ICD-10-PCS; 2023-02-03)
DX: I21.4 Non-ST elevation (NSTEMI) myocardial infarction (principal); I51.81 Takotsubo syndrome; E87.6 Hypokalemia; I25.10 Atherosclerotic heart disease of native coronary artery without angina pectoris; F17.210 Nicotine dependence, cigarettes, uncomplicated; F10.10 Alcohol abuse, uncomplicated; Z63.4 Disappearance and death of family member; H54.7 Unspecified visual loss
CPT/HCPCS: 36415; 71045; 80048; 80053; 83735; 84100; 84484; 85025; 85027; 85610; 85730; 87081; 93005; 93306; 93455; 94640